=== PATIENT | female | born 1990 | race Caucasian/White ===

== ENCOUNTER 2017-04-23 12:04 | Emergency (ER) | payer SELFPAY ==
[2017-04-23] MEDS ORDERED: Adacel (T-DAP) 0.5 ML VIAL ONE (12:14)
[2017-04-23] MEDS ORDERED: Bacitracin Zinc 1 Packet ONE (12:36)
== END 2017-04-23 12:53 | disposition home or self-care (01) ==
LOC: BURERS 12:04
DX: S61.210A Laceration without foreign body of right index finger without damage to nail, initial encounter (principal); F41.9 Anxiety disorder, unspecified; Z23 Encounter for immunization; W26.8XXA Contact with other sharp object(s), not elsewhere classified, initial encounter; Y92.69 Other specified industrial and construction area as the place of occurrence of the external cause
CPT/HCPCS: 12001; 90471; 90715; J2001

== ENCOUNTER 2017-08-29 13:44 | Emergency (ER) | payer BC, OTHER ==
[2017-08-29] MEDS ORDERED: Dexamethasone 4 mg/ml Vial ONE (14:20)
== END 2017-08-29 14:27 | disposition home or self-care (01) ==
LOC: BURERS 13:44
DX: J31.0 Chronic rhinitis (principal); F41.9 Anxiety disorder, unspecified; F17.210 Nicotine dependence, cigarettes, uncomplicated
CPT/HCPCS: 99282; J1100

== ENCOUNTER 2018-04-16 16:51 | Outpatient (CLI) | payer BC ==
--- NOTE | 2018-04-16 18:33 | RAD ---
RIGHT WRIST THREE VIEWS: 04/16/18 No fracture was seen. The carpal relationships appear normal. The distal radius and ulna appear jessica l. IMPRESSION: No significant finding. POS: HOME
== END 2018-04-16 16:52 | disposition home or self-care (01) ==
LOC: BURRAD 16:51
PROVIDERS: ATTEND Family Medicine
DX: M25.531 Pain in right wrist (principal)

== ENCOUNTER 2018-04-22 16:26 | Emergency (ER) | payer OTHER ==
[2018-04-22] MEDS ORDERED: HYDROcodone/Acetaminophen 10/325 mg Tablet ONE (17:16)
--- NOTE | 2018-04-22 17:41 | CT ---
CT OF THE CERVICAL SPINE 04/22/[address] of the cervical spine was done following trauma. Axial slices were acquired, then coronal a nd sagittal reconstructions were done. No fracture, dislocation, or acute bony change was seen. There is loss of the normal cervical lordosi s which may be due to muscle spasm. There is no central canal or foraminal stenosis at any level. No disc abnormalities were appreciated. The prevertebral soft tissues are normal in thickness and the C1 to dens distance is normal. IMPRESSION: Straightening of the cervical spine, otherwise, exam unremarkable. POS: HOME
--- NOTE | 2018-04-22 17:42 | CT ---
CT OF THE BRAIN WITHOUT CONTRAST: 04/22/18 The ventricles are normal in size with no shift. No intracranial bleeding or extra-axial hematoma was seen. There is no sign of mass, edema, or stroke. The skull appears intact. The visible paranasal si nuses and mastoid air cells are clear. IMPRESSION: No acute intracranial findings. POS: HOME
--- NOTE | 2018-04-22 17:43 | RAD ---
LEFT SHOULDER THREE VIEWS: 04/22/18 No fracture, dislocation, or AC joint abnormality was seen. The visible adjacent ribs appear intact. A prominent cervical rib is noted on the left at the C7 level. IMPRESSION: No acute findings. POS: HOME
== END 2018-04-22 17:24 | disposition home or self-care (01) ==
LOC: BURERS 16:26
DX: S16.1XXA Strain of muscle, fascia and tendon at neck level, initial encounter (principal); S00.83XA Contusion of other part of head, initial encounter; S40.012A Contusion of left shoulder, initial encounter; F17.210 Nicotine dependence, cigarettes, uncomplicated; Z79.899 Other long term (current) drug therapy; Z79.891 Long term (current) use of opiate analgesic; W11.XXXA Fall on and from ladder, initial encounter
CPT/HCPCS: 70450; 72125

== ENCOUNTER 2018-07-12 13:47 | Emergency (ER) | payer BC ==
[2018-07-12] MEDS ORDERED: methylPREDNISolone Sod Succ/PF 125 MG/2 ML VIAL ONE (14:10)
== END 2018-07-12 14:41 | disposition home or self-care (01) ==
LOC: BURERS 13:47
DX: J20.9 Acute bronchitis, unspecified (principal); F17.210 Nicotine dependence, cigarettes, uncomplicated; M06.9 Rheumatoid arthritis, unspecified; Z79.899 Other long term (current) drug therapy
CPT/HCPCS: 87804; 94640; 96372; J2930; J7620